=== PATIENT | male | born 1985 | race Asian ===

== ENCOUNTER → 2019-09-05 | Outpatient (CLI) | payer OTHER ==
[2019-09-05 14:52] LABS: microscopic required? NO
[2019-09-05 15:08] LABS: urine erythrocyte NEGATIVE (NEGATIVE)
[2019-09-05 15:26] LABS: CHOLESTEROL/HDL RATIO 3.6
== END | disposition home or self-care (01) ==
LOC: LB 14:38
PROVIDERS: Internal Medicine
DX: E08.65 Diabetes mellitus due to underlying condition with hyperglycemia (principal); I10 Essential (primary) hypertension; E78.5 Hyperlipidemia, unspecified